=== PATIENT | male | born 1975 | race African-American/Black ===

== ENCOUNTER 2023-04-17 12:47 | Emergency (ER) | payer BC ==
[2023-04-17] MEDS ORDERED: Acetaminophen 500 MG TAB ONE (13:33)
== END 2023-04-17 14:50 | disposition home or self-care (01) ==
LOC: ERS 12:47
DX: S82.832A Other fracture of upper and lower end of left fibula, initial encounter for closed fracture (principal); I10 Essential (primary) hypertension; W18.30XA Fall on same level, unspecified, initial encounter
CPT/HCPCS: 29515